=== PATIENT | male | born 1960 ===

== ENCOUNTER 2018-03-26 09:26 | Emergency (ER) | payer BC ==
[2018-03-26 09:41] VITALS: BP 143/88
--- NOTE | 2018-03-26 10:36 | ED ---
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 Severity: Severe Associated Signs & Symptoms: Fever, Myalgia, Cough, Sore Throat Related Hx: Possible Flu/Infectious Exposure - Allergy/Home Medications Allergies/Adverse Reactions: Allergies Allergy/AdvReac Type Severity Reaction Status Date / Time No Known Allergies Allergy Verified 03/26/18 09:42 Home Medications: Home Medications Losartan TAB* [Cozaar TAB*] 100 mg PO DAILY 03/26/18 [History Confirmed 03/26/18 ] PMH/Surg Hx/FS Hx/Imm Hx Previously Healthy: Yes Cardiovascular History: Reports: Hx Hypertension - on meds Infectious Disease History: No Infectious Disease History: Denies: Traveled Outside the [place] in Last 30 Days - Social History Alcohol Use: Occasionally Substance Use Type: Reports: None Smoking Status (MU): Never Smoked Tobacco Review of Systems Positive: Chills Eyes: Negative ENT: Negative Cardiovascular: Negative Positive: Cough Gastrointestinal: Negative Genitourinary: Negative Positive: Myalgia Skin: Negative Neurological: Negative Psychological: Normal All Other Systems Reviewed And Are Negative: Yes Physical Exam Triage Information Reviewed: Yes Vital Signs On Initial Exam: Initial Vitals Temp Pulse Resp BP Pulse Ox 36.6 C 85 16 143/88 99 03/26/18 09:37 03/26/18 09:37 03/26/18 09:37 03/26/18 09:37 03/26/18 09:37 Appearance: Positive: No Pain Distress Skin: Positive: Warm Eyes: Positive: Normal ENT: Positive: TM red - LEFT Neck: Positive: Supple Respiratory/Lung Sounds: Positive: Rhonchi - with cough, Fatigue. Negative: Rales, Stridor, Wheezes Cardiovascular: Positive: Normal Abdomen Description: Positive: Nontender Musculoskeletal: Positive: Normal Diagnostics - Vital Signs Vital Signs Temp Pulse Resp BP Pulse Ox 03/26/18 09:37 36.6 C 85 16 143/88 99 - Laboratory Lab Results: Lab Results 03/26/18 03/26/18 Range/Units 09:54 09:55 Influenza A (Rapid) Negative (Negative) Influenza B (Rapid) Positive A (Negative) Group A Strep Rapid Negative (Negative) Lab Statement: Any lab studies that have been ordered have been reviewed, and results considered in the medical decision making process. Flu Symptom Course/Dx - Course Course Of Treatment: Rapid flu B positive- with clinical quickly worsening bronchitis, and left OM - Diagnoses Provider Diagnoses: Influenza, Bronchitis, Left otitis media Discharge - Sign-Out/Discharge Documenting (check all that apply): Discharge/Admit/Transfer - Discharge Plan Condition: Stable Disposition: HOME Prescriptions: ceFUROXime TAB(*) [Ceftin TAB 250 MG(*)] 500 mg PO BID 7 Days #14 tab Oseltamivir CAP* [Tamiflu CAP*] 75 mg PO BID 5 Days #10 cap Patient Education Materials: Influenza (DC), Acute Bronchitis (ED), Ear Infection (ED) Referrals: No Primary Care Phys,NOPCP [Primary Care Provider] - - Billing Disposition and Condition Condition: STABLE Disposition: HOME
== END 2018-03-26 10:37 | disposition home or self-care (01) ==
LOC: UCEAST 09:26
DX: J11.1 Influenza due to unidentified influenza virus with other respiratory manifestations (principal); J40 Bronchitis, not specified as acute or chronic; H66.92 Otitis media, unspecified, left ear; I10 Essential (primary) hypertension
CPT/HCPCS: 87502; 87651; 99202; G0463